=== PATIENT | female | born 1995 | race Caucasian/White ===

== ENCOUNTER 2021-05-06 18:48 | Emergency (ER) | payer MEDICAID ==
[2021-05-06] MEDS ORDERED: Sodium Chloride 0.9% 10 ML Syringe FLUSH PRN (19:08)
[2021-05-06] MEDS ORDERED: Sodium Chloride 0.9% 1,000 ML IV SCH (19:15)
--- NOTE | 2021-05-06 19:31 | EDM.PDOC ---
ED HPI GENERAL MEDICAL PROBLEM - General Chief Complaint: Respiratory Problem Stated Complaint: TIGHTNESS IN CHEST Time Seen by Provider: 05/06/21 19:15 Source of Information: Reports: Patient History Limitations: Reports: No Limitations - History of Present Illness INITIAL COMMENTS - FREE TEXT/NARRATIVE: Yamile is a 25-year-old female presenting to the ED for evaluation of increasing shortness of breath, dry and minimally productive cough, fever, chills, headache, dehydration in the presence of being 24 weeks . Patient states that she lost her sense of taste and smell last Wednesday. Her symptoms started 8 days ago. There are multiple family members that she has been in contact with that have been tested and are positive for COVID-19 over the last 2 weeks. Her had symptoms a day earlier in his subsided on and have not returned. Her symptoms were improving on Wednesday, however, then they worsened again on Wednesday and have continued to worsen since with fevers as high as 102 F. She lost her sense of taste and smell on Wednesday. She has had diminished appetite and has not been drinking much in the way of fluids resulting in her now having abdominal cramping. - Related Data Allergies Allergy/AdvReac Type Severity Reaction Status Date / Time No Known Allergies Allergy Verified 05/06/21 19:21 Home Meds: Home Meds No122/Iron/Folic Acid [ Multi Tablet] 1 tab PO DAILY 05/06/21 [History] ED ROS GENERAL - Review of Systems Review Of Systems: See Below Constitutional: Reports: Fever, Chills, Malaise, Weakness, Decreased Appetite HEENT: Reports: Rhinitis Respiratory: Reports: Shortness of Breath, Cough, Sputum (Minimal yellow sputum) Cardiovascular: Reports: No Symptoms Endocrine: Reports: Fatigue GI/Abdominal: Reports: Decreased Appetite : Reports: No Symptoms Musculoskeletal: Reports: Muscle Pain Skin: Reports: No Symptoms Neurological: Reports: Headache Psychiatric: Reports: No Symptoms Hematologic/Lymphatic: Reports: No Symptoms Immunologic: Reports: No Symptoms ED EXAM, GENERAL - Physical Exam Exam: See Below Exam Limited By: No Limitations General Appearance: Alert, Anxious, Mild Distress Eye Exam: Bilateral Eye: EOMI, PERRL Nose: Nasal Swelling, Nasal Drainage, Clear Rhinorrhea Throat/Mouth: Normal Inspection, Normal Oropharynx, Normal Voice, No Airway Compromise Head: Atraumatic, Normocephalic Neck: Normal Inspection, Supple, Non-Tender, Full Range of Motion. No: Lymphadenopathy (R), Lymphadenopathy (L) Respiratory/Chest: No Respiratory Distress, No Accessory Muscle Use, Wheezing (Scant inspiratory wheezes). No: Crackles, Rales, Rhonchi, Retractions Cardiovascular: Normal Peripheral Pulses, Regular Rate, Rhythm, No Murmur Peripheral Pulses: 2+: Radial (L), Radial (R) GI/Abdominal: Normal Bowel Sounds, Soft, Non-Tender Back Exam: Normal Inspection, Full Range of Motion Extremities: Normal Inspection, Normal Range of Motion Neurological: Alert, Oriented, Normal Cognition, No Motor/Sensory Deficits Psychiatric: Normal Affect, Normal Mood Skin Exam: Warm, Dry, Intact, Normal Color, No Rash Lymphatic: No Adenopathy Course - Vital Signs Last Recorded V/S: Last Vital Signs Temp 38.1 C 05/06/21 19:34 Pulse 120 H 05/06/21 19:34 Resp 19 05/06/21 19:34 BP 110/44 L 05/06/21 19:34 Pulse Ox 96 05/06/21 19:34 - Orders/Labs/Meds Orders: Active Orders 24 hr Category Date Time Status Sodium Chloride 0.9% [Normal Saline] 1,000 ml Med 05/06/21 19:15 Active IV ASDIRECTED Sodium Chloride 0.9% [Saline Flush] Med 05/06/21 19:08 Active 10 ml FLUSH ASDIRECTED PRN Isolation [COMM] Stat Oth 05/06/21 19:04 Ordered Saline Lock Insert [OM.PC] Routine Oth 05/06/21 19:08 Ordered Medication Orders Sodium Chloride (Normal Saline) 1,000 mls @ 999 mls/hr IV ASDIRECTED PERRI Last Admin: 05/06/21 19:30 Dose: 999 mls/hr Documented by: JEANETTE Sodium Chloride (Sodium Chloride 0.9% 10 Ml Syringe) 10 ml FLUSH ASDIRECTED PRN PRN Reason: Keep Vein Open Last Admin: 05/06/21 19:41 Dose: 10 ml Documented by: JEANETTE Labs: Laboratory Tests 05/06/21 05/06/21 05/06/21 Range/Units 19:04 19:30 19:30 WBC 4.5 (4.5-11.0) K/uL RBC 3.61 (3.30-5.50) M/uL Hgb 11.5 L (12.0-15.0) g/dL Hct 34.0 L (36.0-48.0) % MCV 94 (80-98) fL MCH 32 H (27-31) pg MCHC 34 (32-36) % Plt Count 105 L (150-400) K/uL Neut % (Auto) 79.8 H (36-66) % Lymph % (Auto) 14.9 L (24-44) % [place] % (Auto) 5.1 (2-6) % Eos % (Auto) 0.0 L (2-4) % Baso % (Auto) 0.2 (0-1) % D-Dimer, Quantitative 704.86 H (0.0-500.0) ng/mL Sodium (140-148) mmol/L Potassium (3.6-5.2) mmol/L Chloride (100-108) mmol/L Carbon Dioxide (21-32) mmol/L Anion Gap (5.0-14.0) mmol/L BUN (7-18) mg/dL Creatinine (0.6-1.0) mg/dL Est Cr Clr Drug Dosing mL/min Estimated GFR (MDRD) (>60) Glucose (74-106) mg/dL Calcium (8.5-10.1) mg/dL C-Reactive Protein (0.0-0.3) mg/dL SARS-CoV-2 RNA (AMIE) Positive H (NEGATIVE) 05/06/21 Range/Units 19:30 WBC (4.5-11.0) K/uL RBC (3.30-5.50) M/uL Hgb (12.0-15.0) g/dL Hct (36.0-48.0) % MCV (80-98) fL MCH (27-31) pg MCHC (32-36) % Plt Count (150-400) K/uL Neut % (Auto) (36-66) % Lymph % (Auto) (24-44) % [place] % (Auto) (2-6) % Eos % (Auto) (2-4) % Baso % (Auto) (0-1) % D-Dimer, Quantitative (0.0-500.0) ng/mL Sodium 137 L (140-148) mmol/L Potassium 3.5 L (3.6-5.2) mmol/L Chloride 103 (100-108) mmol/L Carbon Dioxide 21 (21-32) mmol/L Anion Gap 16.5 H (5.0-14.0) mmol/L BUN 4 L (7-18) mg/dL Creatinine 0.5 L (0.6-1.0) mg/dL Est Cr Clr Drug Dosing 170.17 mL/min Estimated GFR (MDRD) > 60 (>60) Glucose 88 (74-106) mg/dL Calcium 8.2 L (8.5-10.1) mg/dL C-Reactive Protein 2.91 H (0.0-0.3) mg/dL SARS-CoV-2 RNA (AMIE) (NEGATIVE) Meds: Medications Generic Name Dose Route Start Last Admin Trade Name Freq PRN Reason Stop Dose Admin Sodium Chloride 1,000 mls @ 999 mls/hr 05/06/21 19:15 05/06/21 19:30 Normal Saline IV 999 mls/hr ASDIRECTED PERRI Administration Sodium Chloride 10 ml 05/06/21 19:08 05/06/21 19:41 Sodium Chloride 0.9% 10 Ml Syringe FLUSH 10 ml ASDIRECTED PRN Administration Keep Vein Open - Re-Assessments/Exams Free Text/Narrative Re-Assessment/Exam: 05/06/21 20:45 I reviewed the patient's labs showing a CBC with a leukocyte count of 4.5 and a normal differential, hemoglobin of 11.5 with a hematocrit of 34.0 and a platelet count of 105,000. The comprehensive metabolic panel is significant for sodium 137, potassium 3.5, chloride of 103, bicarbonate of 21, BUN of 4 with a creatinine of 0.5. Glucose is 88 and calcium is 8.2 otherwise the remainder is unremarkable. D-dimer is elevated at 704. CRP is 2.91. COVID-19 is positive. In short, this is a 25-year-old female who has lost of taste and smell since Wednesday and is now been diagnosed with COVID-19 at 24 weeks of her . She was instructed to rest, maintain fever control with Tylenol, and quarantine for total of 14 days from the onset of her symptoms. Her should also quarantine for that period of time as he likely has it as well. Instructions to return to the ED were discussed. She should maintain gentle hydration but not overdo it. Departure - Departure Time of Disposition: 20:49 Disposition: Home, Self-Care 01 Clinical Impression: COVID-19 affecting in second trimester - Discharge Information Instructions: and COVID-19, 10 Things You Can Do to Manage Your COVID-19 Symptoms at Home - CDC, COVID-19: Quarantine vs. Isolation - [facility] [place] Referrals: PCP,None [Primary Care Provider] - Forms: ED Department Discharge Care Plan Goals: Your test today show that you have COVID-19 likely starting from Wednesday when you lost her sense of taste and smell. It is likely that this is the delta variant of COVID-19 which is running rampant in this area right now. Basically, management of this is going to be rest, fever control with Tylenol, and maintaining hydration but not over hydrating. Your significant other also needs to quarantine for the 14 days from the onset of symptoms which again is likely last Wednesday. Please call and notify your [employer] that you have COVID-19 as a may want to manage the somewhat differently. Continue with the vitamin. I have included a prescription for Zofran ODT that she may take for nausea and vomiting. Sepsis Event Note (ED) - Focused Exam Vital Signs: Vital Signs Temp Pulse Resp BP Pulse Ox 05/06/21 19:34 38.1 C 120 H 19 110/44 L 96 05/06/21 19:30 38.1 C 120 H 19 110/44 L 96 - Problem List & Annotations (1) COVID-19 affecting in second trimester SNOMED Code(s): 440760241, 762578473 Code(s): O98.512 - OTH VIRAL DISEASES COMPLICATING , SECOND TRIMESTER; U07.1 - COVID-19 Status: Acute Priority: Medium Current Visit: Yes - Problem List Review Problem List Initiated/Reviewed/Updated: Yes - My Orders Last 24 Hours: My Active Orders 05/06/21 19:04 Isolation [COMM] Stat 05/06/21 19:08 Sodium Chloride 0.9% [Saline Flush] 10 ml FLUSH ASDIRECTED PRN Saline Lock Insert [OM.PC] Routine 05/06/21 19:15 Sodium Chloride 0.9% [Normal Saline] 1,000 ml IV ASDIRECTED - Assessment/Plan Last 24 Hours: My Active Orders 05/06/21 19:04 Isolation [COMM] Stat 05/06/21 19:08 Sodium Chloride 0.9% [Saline Flush] 10 ml FLUSH ASDIRECTED PRN Saline Lock Insert [OM.PC] Routine 05/06/21 19:15 Sodium Chloride 0.9% [Normal Saline] 1,000 ml IV ASDIRECTED
== END 2021-05-06 21:08 | disposition home or self-care (01) ==
LOC: JP.ED 18:48
DX: O98.512 Other viral diseases complicating pregnancy, second trimester (principal); U07.1 COVID-19; Z3A.24 24 weeks gestation of pregnancy
CPT/HCPCS: 36415; 80048; 85025; 85379; 86140; 87635; 99284; J7030; U0002